=== PATIENT | male | born 1965 | race Caucasian/White ===

== ENCOUNTER → 2016-08-07 | Outpatient (CLI) | payer BC ==
[~2016-08-07] MED LIST: FISH OIL 1,2001 EACH PO
== END ==
LOC: DTC 10:12
DX: Z71.3 Dietary counseling and surveillance (principal); E11.65 Type 2 diabetes mellitus with hyperglycemia; E78.5 Hyperlipidemia, unspecified; Z68.32 Body mass index [BMI] 32.0-32.9, adult; Z79.84 Long term (current) use of oral hypoglycemic drugs; Z79.82 Long term (current) use of aspirin; Z79.4 Long term (current) use of insulin; Z79.899 Other long term (current) drug therapy
CPT/HCPCS: G0109

== ENCOUNTER → 2021-07-04 | Outpatient (CLI) | payer BC ==
[~2021-07-04] MED LIST changes: +AMYLASE; +FENOFIBRATE160 MG PO; +GABAPENTIN600 MG PO; +GLUCOPHAGE850 MG PO; +HUMULIN 70100 UNIT/1 SC; +HUMULIN R100 UNIT/1 SC; +LIPASE; +NORCO 7.5-3251 EACH PO; +PROTONIX40 MG PO; +SINGULAIR10 MG PO; +TOPROL XL100 MG PO; +ZESTRIL40 MG PO; +ZETIA 10 MG TAB10 MG PO; +ZOFRAN4 MG PO
== END ==
LOC: DTC 12:45
DX: Z71.3 Dietary counseling and surveillance (principal); E11.65 Type 2 diabetes mellitus with hyperglycemia
CPT/HCPCS: G0108

== ENCOUNTER 2021-11-23 11:54 | Emergency (ER) | payer BC ==
[2021-11-23 12:52] LABS: HEMOGLOBIN 14.3 gm/dl (14.0-17.5); RED BLOOD COUNT 5.04 M/UL (4.20-5.50); WHITE BLOOD COUNT 6.6 K/UL (4.5-11.0)
[2021-11-23 13:19] LABS: BUN/CREATININE RATIO 22 (0-10)
[2021-11-23] MEDS ORDERED: CYCLOBENZAPRINE10 MG PO (14:06)
== END 2021-11-23 14:10 | disposition home or self-care (01) ==
LOC: ER1 11:54
PROVIDERS: Family Medicine
DX: K59.00 Constipation, unspecified (principal); I88.0 Nonspecific mesenteric lymphadenitis; M51.36 Other intervertebral disc degeneration, lumbar region; E11.65 Type 2 diabetes mellitus with hyperglycemia; I10 Essential (primary) hypertension
CPT/HCPCS: 80053; 81001; 83690; 85025; 87086; 96374; 99284; J1885

== ENCOUNTER → 2021-12-24 | Outpatient (CLI) | payer BC ==
[~2021-12-24] MED LIST changes: +CYCLOBENZAPRINE10 MG PO
== END ==
LOC: EMI 12:55
DX: M51.16 Intervertebral disc disorders with radiculopathy, lumbar region (principal); M48.061 Spinal stenosis, lumbar region without neurogenic claudication
CPT/HCPCS: 72148

== ENCOUNTER 2021-12-30 19:46 | Emergency (ER) | payer BC ==
[2021-12-30 20:22] LABS: RED BLOOD COUNT 4.64 M/UL (4.20-5.50); WHITE BLOOD COUNT 6.4 K/UL (4.5-11.0)
[2021-12-30 20:50] LABS: BUN/CREATININE RATIO 23 (0-10)
[2021-12-30] MEDS ORDERED: BENTYL 10MG CAP10 MG PO (22:52)
== END 2021-12-30 23:10 | disposition home or self-care (01) ==
LOC: ER1 19:46
PROVIDERS: Student in an Organized Health Care Education/Training Program
DX: R10.31 Right lower quadrant pain (principal); R10.813 Right lower quadrant abdominal tenderness; R10.814 Left lower quadrant abdominal tenderness; E78.5 Hyperlipidemia, unspecified; I10 Essential (primary) hypertension; E11.40 Type 2 diabetes mellitus with diabetic neuropathy, unspecified
CPT/HCPCS: 80053; 81001; 83605; 83690; 85025; 86140; 96374; 96375; 99284; J2270; J2405; Q9967